=== PATIENT | female | born 1945 | race Caucasian/White ===

== ENCOUNTER 2024-09-02 11:23 | Emergency (ER) | payer MEDICARE, MEDICAID, SELFPAY ==
[2024-09-02 11:35] VITALS: BP 161/79; PULSE 77; RESP 19; TEMP 36.6; O2SAT 96; BMI 28.5
--- NOTE | 2024-09-02 11:47 | XR_ITS ---
Examination: CT abdomen and pelvis without contrast. Coronal 3-D reconstructions. Sagittal 2-D reconstructions. Date and time of exam:September 02, 2024 1207 hours INDICATIONS: Onset right lower abdominal pain today CTDI: vol (mGy): 8.13 DLP: (mGycm): 459 Technique: Axial images of the abdomen have been obtained, 3 mm slice thickness Intravenous contrast material has not been administered. Low dose protocols were performed. One or more of the following dose reduction techniques were used; automated exposure control, adjustment of the mA and/or KV according to patient size, use of iterative reconstruction technique. Findings: No focal liver or splenic lesion Absent gallbladder No pancreatic or adrenal mass No renal or ureteral calculi, no hydronephrosis Aorta normal size No pericecal inflammatory change No bowel obstruction Colonic diverticulosis Atrophic uterus Bladder intact Severe osteopenia with moderate disc narrowing L5-S1, moderate narrowing hip joints IMPRESSION: No renal or ureteral calculi, no hydronephrosis No CT findings of appendicitis bowel obstruction or diverticulitis
--- NOTE | 2024-09-02 11:47 | PD.EDRME ---
Rapid Medical Screening Exam [facility] Arrival date/time: 09/02/24 11:23 79-year-old female with no known medical history presents to the emergency room with a chief complaint of right lower quadrant abdominal pain and tenderness. Patient denies any vomiting any fevers any dysuria. I have greeted and performed a focused initial assessment of this patient. A comprehensive ED assessment and evaluation of the patient, analysis of all test results, and completion of the medical decision making process will be conducted by additional ED providers. Chief Complaint: Abdominal Pain Vital signs: Vital Signs Temperature 97.8 F 09/02/24 11:35 Pulse Rate 77 09/02/24 11:35 Respiratory Rate 19 09/02/24 11:35 Blood Pressure 161/79 H 09/02/24 11:35 Pulse Oximetry (%) 96 09/02/24 11:35 Oxygen Delivery Method Room Air 09/02/24 11:35 Vital signs reviewed by provider: Yes
[2024-09-02 12:23] LABS: Basophils # (Auto) 0.0 Thou/mm3 (0.0-0.2); Basophils % (Auto) 1 % (0-2.5); Eosinophils # (Auto) 0.2 Thou/mm3 (0.0-0.5); Eosinophils % (Auto) 3 % (0-10); Hematocrit 42.1 % (36.0-46.0); Hemoglobin 13.6 g/dL (12.0-16.0); Immature Granulocytes Auto 0.03 Thou/mm3 (0.00-0.00); Lymphocytes # (Auto) 1.7 Thou/mm3 (1.0-4.8); Lymphocytes % (Auto) 21 % (10-50); Mean Corpuscular HGB Conc 32.3 g/dl (31.0-37.0); Mean Corpuscular Hemoglobin 29.6 pg (25.0-35.0); Mean Corpuscular Volume 92 fL (80-100); Monocytes # (Auto) 0.7 Thou/mm3 (0.0-0.8); Monocytes % (Auto) 9 % (0-12); Neutrophils # (Auto) 5.3 Thou/mm3 (1.8-7.7); Neutrophils % (Auto) 66 % (37-80); Nucleated Red Blood Cell # 0.00 Thou/mm3 (0.00-0.00); Nucleated Red Blood Cell % 0 /100 WBC (0); Platelet Count 262 Thou/mm3 (140-440); RDW Standard Deviation 45.4 fL (36.4-46.3); Red Blood Count 4.59 Miln/mm3 (4.00-5.20); White Blood Count 8.0 Thou/mm3 (3.6-11.0)
[2024-09-02 12:31] LABS: Collection Type, Urine Clean Catch
[2024-09-02 12:35] LABS: Bilirubin,Urine Negative (Negative); Blood,Urine Negative (Negative); Clarity,Urine Clear (Clear/Hazy); Color,Urine Colorless (Lt Yel-Yel); Glucose, Urine Negative (Negative); Ketones,Urine Negative (Negative); Leukocyte Esterase,Urine Negative (Negative); Nitrite,Urine Negative (Negative); PH,Urine 7.5 (5.0-7.0); Protein,Urine Negative (Neg - Trace); RBC,Urine < 1 /hpf (0-3); Specific Gravity,Urine 1.009 (1.001-1.035); Squamous Epithelial Cell,Urine < 1 /hpf (0-5); Urobilinogen,Urine Negative mg/dL (0.0-1.0); WBC,Urine < 1 /hpf (0-5)
[2024-09-02 12:44] LABS: Alanine Aminotransferase 16 U/L (10-49); Albumin, Serum 4.1 gm/dL (3.4-4.8); Albumin/Globulin Ratio 1.5 (1.2-2.2); Alkaline Phosphatase 79 U/L (46-116); Anion Gap 11 (7-16); Aspartate Amino Transferase 18 U/L (0-34); BUN/Creatinine Ratio 13 Ratio (12-20); Bilirubin,Total 0.5 mg/dL (0.3-1.2); Blood Urea Nitrogen 12 mg/dL (9-23); Calcium 9.4 mg/dL (8.3-10.6); Calcium (Corrected) 9.4 mg/dL (8.5-10.1); Carbon Dioxide 27.3 mMol/L (20.0-31.0); Chloride 104 mMol/L (98-107); Creatinine (Component) 0.9 mg/dL (0.6-1.3); Estimated Creatinine Clearance 45.2 mL/min (>60); Globulin 2.7 gm/dL (2.3-3.5); Glucose 101 mg/dL (74-106); Lipase 34 U/L (12-53); Osmolality,Calculated 282 (275-295); Potassium 4.0 mMol/L (3.4-5.1); Sodium 142 mMol/L (136-145); Total Protein 6.8 gm/dL (5.7-8.2); eGFR > 60 See Note
--- NOTE | 2024-09-02 13:04 | PD.EDABDPN ---
ED Abdominal Pain RME/HPI General Chief Complaint: Abdominal Pain Stated complaint: Right lower abdomen pain, sent by clinic Arrival date/time: 09/02/24 11:23 Limitations: no limitations RME / HPI RME / HPI narrative: 09/02/24 11:23 79-year-old female with no known medical history presents to the emergency room with a chief complaint of right lower quadrant abdominal pain and tenderness. Patient denies any vomiting any fevers any dysuria. I have greeted and performed a focused initial assessment of this patient. A comprehensive ED assessment and evaluation of the patient, analysis of all test results, and completion of the medical decision making process will be conducted by additional ED providers. DR. FLANAGAN MAIN ED EVALUATION: 79 year old female presents to the Emergency Department via private vehicle with a chief complaint of right lower abdominal pain that has been worsening over the past 2 days. She denies fever, chills, weight loss, nausea, vomiting, diarrhea, constipation, dysuria, or urinary urgency/frequency. There is no chest pain, dyspnea, cough, or visual changes. She also denies back pain, joint pain, rashes, or neurological symptoms. No recent injury or trauma reported. She is not currently on any medications. Related Data Allergies Allergy/AdvReac Type Severity Reaction Status Date / Time codeine Allergy Verified 09/02/24 11:29 Review of Systems Review of Systems Systems Reviewed: All systems reviewed, normal except as documented Past Medical History Social History SMOKING STATUS: Never smoker ED Exam General Limitations: Present no limitations General appearance: Present alert and in no apparent distress Head Head exam: Present atraumatic, normocephalic and normal inspection Eye Eye exam: Present normal appearance, PERRL and EOMI ENT ENT exam: Present normal exam, normal oropharynx and mucous membranes moist Neck Neck exam: Present normal inspection, full ROM and trachea midline Chest Chest inspection: Present normal inspection and symmetric chest wall rise Respiratory Respiratory exam: Present normal lung sounds bilaterally Cardiovascular Cardiovascular exam: Present regular rate, normal rhythm and normal heart sounds Abdominal Exam Abdominal exam: Present soft and normal bowel sounds Extremities Exam Extremities exam: Present normal inspection and full ROM Back Exam Back exam: Present normal inspection and full ROM Neurological Exam Neurological exam: Present alert, oriented X3 and CN II-XII intact Psychiatric Psychiatric exam: Present normal affect and normal mood Skin Skin exam: Present warm, dry, intact and normal color Course Quality Measures none Orders Category Date Time Status Meter Engineer STAT Care 09/02/24 12:40 Active Continuous Pulse Oximetry STAT Care 09/02/24 12:40 Active Insert IV STAT Care 09/02/24 12:40 Active NPO STAT Care 09/02/24 12:[address] abdomen pelvis wo con Stat Exams 09/02/24 11:47 Completed CBC Stat Lab 09/02/24 11:55 Completed CMP [Comprehensive Metabolic Panel] Stat Lab 09/02/24 11:55 Completed Lipase Stat Lab 09/02/24 11:55 Completed Magnesium Stat Lab 09/02/24 12:40 Ordered Prothrombin Time with INR Stat Lab 09/02/24 12:40 Ordered UA [Urinalysis] Stat Lab 09/02/24 12:22 Completed Urine Culture Stat Lab 09/02/24 12:22 Received Morphine Inj Med 09/02/24 12:40 Discontinued 2 mg IVP X1 ONE Ondansetron Inj [Zofran Inj] Med 09/02/24 12:41 Discontinued 4 mg IVP X1 ONE Sodium Chloride 0.9% 1000 ml [Ns] 1,000 ml Med 09/02/24 12:40 Discontinued IV 999 mls/hr Vital Signs Vital signs: Vital Signs Temperature 97.8 F 09/02/24 11:35 Pulse Rate 77 09/02/24 11:35 Respiratory Rate 19 09/02/24 11:35 Blood Pressure 161/79 H 09/02/24 11:35 Pulse Oximetry (%) 96 09/02/24 11:35 Oxygen Delivery Method Room Air 09/02/24 11:35 Abdominal Pain MDM MDM Narrative MDM Narrative:: I, Senait Thompson, am scribing for and in the presence of Dr. Flanagan. CT negative, no appendicitis. Labs are unremarkable. Plan to discharge patient with resolved abdominal pain and musculoskeletal pain Patient data External records reviewed:: [facility] previous records Clinical information provided by:: patient and spouse Social determinants that could affect healthcare access:: none Patient has the following chronic illnesses:: Denies any PMHx, surgeries, or daily medications. How is presenting disease/condition affected by chronic disease/condition?: no chronic disease Evaluation data The following diagnostics were reviewed and interpreted by me:: lab results and radiology exam(s) Lab and/or radiology exams considered but not ordered:: none Interpretation Summary: Procedure(s): CT abdomen pelvis wo con Accession Number(s): [id number] cc: Fransisco Conklin; Froylan Krishna MD; NO PRIMARY/FAMILY,PHYSICIAN~ Examination: CT abdomen and pelvis without contrast. Coronal 3-D reconstructions. Sagittal 2-D reconstructions. Date and time of exam:September 02, 2024 1207 hours INDICATIONS: Onset right lower abdominal pain today CTDI: vol (mGy): 8.13 DLP: (mGycm): 459 Technique: Axial images of the abdomen have been obtained, 3 mm slice thickness Intravenous contrast material has not been administered. Low dose protocols were performed. One or more of the following dose reduction techniques were used; automated exposure control, adjustment of the mA and/or KV according to patient size, use of iterative reconstruction technique. Findings: No focal liver or splenic lesion Absent gallbladder No pancreatic or adrenal mass No renal or ureteral calculi, no hydronephrosis Aorta normal size No pericecal inflammatory change No bowel obstruction Colonic diverticulosis Atrophic uterus Bladder intact Severe osteopenia with moderate disc narrowing L5-S1, moderate narrowing hip joints IMPRESSION: No renal or ureteral calculi, no hydronephrosis No CT findings of appendicitis bowel obstruction or diverticulitis Dictated By: Froylan Krishna MD Medications / Prescriptions Medications or Prescriptions considered but not ordered:: none Medication administrations:: Medication Administration History Discontinued Medications Sodium Chloride (Ns) 1,000 mls @ 999 mls/hr IV .Q1H1M ONE Stop: 09/02/24 13:40 Last Admin: 09/02/24 14:19 Dose: Not Given Documented By: CG Non-Admin Reason: Cancelled by Provider Morphine Sulfate (Morphine Sulf Inj 10 Mg/Ml Vial) 2 mg IVP X1 ONE Stop: 09/02/24 14:40 Last Admin: 09/02/24 14:19 Dose: Not Given Documented By: CG Non-Admin Reason: Cancelled by Provider Ondansetron HCl (Ondansetron Inj 2 Mg/Ml Inj 2 Ml) 4 mg IVP X1 ONE Stop: 09/02/24 12:42 Last Admin: 09/02/24 14:19 Dose: Not Given Documented By: CG Non-Admin Reason: Cancelled by Provider see above Consultations Consultation(s) initiated? (list below): No Diagnosis Differential diagnosis abdominal pain: other (appendicitis, diverticulitis, and urinary tract infection (UTI)) Most likely diagnosis given after review of the tests above:: Resolved abdominal pain Musculoskeletal pain Admission Indicated Admission indicated?: not indicated Admission Request Was there a request for admission?: No Disposition Plan Disposition Plan: Discharge Discharge Attestation Discharge Attestation: The patient and all family members were given an opportunity to ask questions and understood the discharge instructions. Discharge instructions specifically effects, indications for sooner follow up or return to the emergency department, and the expected course of current diagnosis. Patient condition: Stable Discharge Plan Plan Patient Disposition: HOME (Self Care) Patient condition on transfer: Stable Prescriptions/Referrals Referrals: No Primary/Family,Physician [Primary Care Provider] - In 1 week Problem List Clinical Impression: Resolved abdominal pain, Musculoskeletal pain Patient/Caregiver Discharge Instructions Additional Instructions: Take Tylenol 500 mg 2 tabs every 6 hours PLUS Advil 200 mg gel 2 tablets as needed for pain. Please follow-up with your primary care physician within 2-3 days. Return to the Emergency Department as needed. Print Language: Belarusian Stand Alone Forms: Mendy Award Info., Patient Portal Info Letter
== END 2024-09-02 14:30 | disposition home or self-care (01) ==
PROVIDERS: Nurse Practitioner Family; Emergency Provider Family Medicine
DX: R10.31 Right lower quadrant pain (principal)
CPT/HCPCS: 36415; 74176; 80053; 81001; 83690; 83735; 85025; 85610; 87086; 99284

== ENCOUNTER 2024-09-03 10:37 | Emergency (ER) | payer MEDICARE, MEDICAID, SELFPAY ==
[2024-09-03 10:47] VITALS: BP 169/82; PULSE 85; RESP 19; TEMP 37.1; O2SAT 95; BMI 28.8
--- NOTE | 2024-09-03 11:50 | XR_ITS ---
Examination: Lumbar spine 3 views Technique one AP lateral coned lateral lower lumbar spine 3 views Indications: Lower back pain beginning 5 days ago. Date and time: September 03, 2024, 12:20 PM. Findings: Lumbar dextroscoliosis 12 degrees Prominent osteopenia Diffuse thhz-he-ytxaobjk lumbar degenerative disc disease, most prominent L4-L5, L5-S1. No spondylolisthesis Impression: Diffuse lqyf-tw-dltvgorq lumbar degenerative disc disease, most prominent L4-L5, L5-S1.
[2024-09-03] MEDS: ACETAMINOPHEN 325 MG TABLET 650 MG PO (12:08)
--- NOTE | 2024-09-03 12:13 | PD.EDABDPN ---
ED Abdominal Pain RME/HPI General Chief Complaint: Abdominal Pain Stated complaint: lumbar back pain Time seen by provider: 09/03/24 11:05 Arrival date/time: 09/03/24 10:37 This is a 79-year-old female was brought in by for complaints of lower back pain. Patient reports she was evaluated in the emergency department yesterday however continues to have mild lower back pain. Upon arrival patient states her pain has diminished. No reports of fever rigors chills dysuria. Source: patient Mode of arrival: ambulatory Related Data Previous Rx's ?Medication ?Instructions ?Recorded naproxen 500 mg tablet (Naprosyn) 500 mg PO BID PRN pain #20 tabs 09/03/24 Allergies Allergy/AdvReac Type Severity Reaction Status Date / Time codeine Allergy Verified 09/03/24 10:43 Review of Systems Review of Systems Systems Reviewed: All systems reviewed, normal except as documented Narrative Review of Systems: Gen: No fever, no chills, no weight loss EYES: No discharge, no visual changes, no pain HEENT: No ear pain, no congestion, no sore throat PULM: No shortness of breath, no cough, no congestion CV: No chest pain, no dyspnea on exertion, no palpitations GI: No nausea, no vomiting, no diarrhea, no pain, no constipation : No frequency, no urgency,? no dysuria Musc/skel: No joint pain, no back pain Skin: No rash? Psyc: No hallucinations, no depression Heme/Lymph: No easy bleeding or bruising tendencies Neuro: No weakness, no headache ED Exam Narrative Physical exam: General: Sittiing in Exam table in no acute distress, answering questions appropriately HENT: normocephalic, atraumatic, EOMI, PERRLA, moist mucous membranes Chest: chest wall is nontender Cardiac: regular rate and rhythm, normal S1 and S2, no murmurs, rubs, or gallops, capillary refill ?2 seconds Pulmonary: clear to auscultation bilaterally, no wheezing, crackles, or rhonchi Abdominal: active bowel sounds, soft, nontender, nondistended Neuro: A&OX3, CN II-XII intact, sensation grossly intact bilaterally in UE and LE. Skin: no rashes, no ecchymosis Ext: no lower extremity edema Course Quality Measures none Orders Category Date Time Status XR lumbar spine 2-3V Stat Exams 09/03/24 11:50 Completed Acetaminophen Tab [Tylenol Tab] Med 09/03/24 11:50 Discontinued 650 mg PO X1 ONE Vital Signs Vital signs: Vital Signs Temperature 98.7 F 09/03/24 10:47 Pulse Rate 85 09/03/24 10:47 Respiratory Rate 19 09/03/24 10:47 Blood Pressure 169/82 H 09/03/24 10:47 Pulse Oximetry (%) 95 09/03/24 10:47 Oxygen Delivery Method Room Air 09/03/24 10:47 Abdominal Pain MDM MDM Narrative MDM Narrative:: The patient's acute case reviewed from yesterday's ER visit. CT labs and imaging reassuring. I did go ahead and order a lumbar x-ray because the patient states she has intermittent lower back pain I did reveal diffuse degenerative disc disease L5-S1. Advised will discharge home with close follow-up with PCP return to the emergency department if any changes. Patient data External records reviewed:: [facility] previous records Clinical information provided by:: patient Social determinants that could affect healthcare access:: none Patient has the following chronic illnesses:: no How is presenting disease/condition affected by chronic disease/condition?: no chronic disease Evaluation data The following diagnostics were reviewed and interpreted by me:: radiology exam(s) Lab and/or radiology exams considered but not ordered:: no Interpretation Summary: Examination: Lumbar spine 3 views Technique one AP lateral coned lateral lower lumbar spine 3 views Indications: Lower back pain beginning 5 days ago. Date and time: September 03, 2024, 12:20 PM. Findings: Lumbar dextroscoliosis 12 degrees Prominent osteopenia Diffuse bwcl-bj-iqyrcmar lumbar degenerative disc disease, most prominent L4-L5, L5-S1. No spondylolisthesis Impression: Diffuse gexo-bs-orkmefcz lumbar degenerative disc disease, most prominent L4-L5, L5-S1. Medications / Prescriptions Medications or Prescriptions considered but not ordered:: no Medication administrations:: Medication Administration History Discontinued Medications Acetaminophen (Acetaminophen 325 Mg Tablet) 650 mg PO X1 ONE Stop: 09/03/24 11:51 Last Admin: 09/03/24 12:08 Dose: 650 mg Documented By: CELESTE meds given Consultations Consultation(s) initiated? (list below): No Diagnosis Differential diagnosis abdominal pain: constipation and other (Degenerative disc disease, lumbar strain, sciatica,) Most likely diagnosis given after review of the tests above:: Degenerative disc Admission Indicated Admission indicated?: not indicated Admission Request Was there a request for admission?: No Disposition Plan Disposition Plan: Discharge Discharge Attestation Discharge Attestation: The patient and all family members were given an opportunity to ask questions and understood the discharge instructions. Discharge instructions specifically effects, indications for sooner follow up or return to the emergency department, and the expected course of current diagnosis. Patient condition: Stable Discharge Plan Plan Patient Disposition: HOME (Self Care) Patient condition on transfer: Stable Prescriptions/Referrals Prescriptions/Med Rec: New naproxen [Naprosyn] 500 mg tablet 500 mg PO BID PRN (Reason: pain) Qty: 20 0RF Referrals: Serge Villavicencio MD [Primary Care Provider] - In 1 week Problem List Clinical Impression: Degenerative disc disease Patient/Caregiver Discharge Instructions Discharge Activity: activity as tolerated Education Materials: ED Back Care Tips Additional Instructions: Your x-ray demonstrates degenerative disc disease. Please follow-up with your primary doctor clinic as directed. Can take dhrk-xjy-zpbbrzm Tylenol or ibuprofen for pain. Return to the emergency department if any worsening situation in condition. Print Language: Bhutanese Stand Alone Forms: Mendy Award Info., Patient Portal Info Letter JASMIN/PRO Supervising Physician JASMIN/PRO Supervising Physician: jayesh
--- NOTE | 2024-09-03 14:40 | PC.NURSE ---
PT CALLED IN LOBBY; NO RESPONSE AT THIS TIME.
--- NOTE | 2024-09-03 15:05 | PC.NURSE ---
PT CALLED INSIDE LOBBY AND OUTSIDE; NO RESPONSE AT THIS TIME
--- NOTE | 2024-09-03 15:47 | PC.NURSE ---
PT CALLED IN LOBBY AND OUTSIDE; NO RESPONSE AT THIS TIME.
== END 2024-09-03 15:47 | disposition home or self-care (01) ==
PROVIDERS: Emergency Provider Family Medicine; PCP Family Medicine
DX: M51.360 Other intervertebral disc degeneration, lumbar region with discogenic back pain only (principal); M51.370 Other intervertebral disc degeneration, lumbosacral region with discogenic back pain only
CPT/HCPCS: 72100; 99283; A9270

== ENCOUNTER 2024-09-16 08:48 | Emergency (ER) | payer MEDICARE, MEDICAID, SELFPAY ==
[2024-09-16 08:50] VITALS: BMI 27.4
[2024-09-16 09:03] VITALS: BP 166/81; PULSE 91; RESP 20; TEMP 37.3; O2SAT 98; BMI 28.5
--- NOTE | 2024-09-16 09:13 | EDNOTE_ITS ---
ED General RME/HPI General Chief complaint: Skin/Abscess/Foreign Body Stated complaint: SPIDER BITE TO NOSE 2-3 DAYS AGO Time Seen by Provider: 09/16/24 09:09 Arrival date/time: 09/16/24 08:48 CC: Red swollen painful nose HPI onset 3 to 4 days ago with progressive increase in severity denies cough fever chills shortness of breath difficulty breathing. If not sure if stung by an insect or has been had her finger in her nose. Patient denies any bleeding or discharge from the nose she denies any difficulty breathing. Minimal relief with ibuprofen. Currently pain is 8 on a 10 scale nonradiating. Patient is awake alert oriented in mild discomfort but not in any acute distress. Related Data Previous Rx's ?Medication ?Instructions ?Recorded naproxen 500 mg tablet (Naprosyn) 500 mg PO BID PRN pa in #20 tabs 09/03/24 amoxicillin 875 mg-potassium 1 tab PO BID #14 tabs 03/12 clavulanate 125 mg tablet meloxicam 7.5 mg tablet 7.5 mg PO .Twice daily #10 t abs 09/16/24 Allergies Allergy/AdvReac Type Severity Reaction Status Date / Time codeine Allergy Verified 09/03/24 10:43 Review of Systems Review of Systems Narrative Review of Systems: GEN: No fever, no chills, no weight loss EYES: No discharge, no visual changes, no pain HEENT: No ear pain, no congestion, no sore throat, +nose pain PULM: No shortness of breath, no cough, no congestion CV: No chest pain, no dyspnea on exertion, no palpitations GI: No nausea, no vomiting, no diarrhea, no pain, no constipation : No frequency, no urgency, no dysuria MUSC/SKEL: No joint pain, no back pain SKIN: No rash PSYCH: No hallucinations, no depression HEME/LYMPH: No easy bleeding or bruising tendencies NEURO: No weakness, no headache Past Medical History Social History SMOKING STATUS: Never smoker ED Exam Narrative Physical exam: [General: In mild discomfort but not in any acute distress Head normocephalic HEENT: Nose, enlarged tender erythematous no open lesions, induration or ulcerations appreciated in the septum, or the visible nares, external nose erythematous and edematous no open lesions. All of the substance of HEENT are within acceptable limits Neck is supple nontender Chest equal chest rise nontender to palpation Respiratory: Clear to auscultation no wheezes crackles or rubs CV: Rate rhythm is regular no murmurs rubs or clicks Abdomen is distended secondary to body habitus soft nontender no masses positive bowel sounds all 4 quadrants Back: No CVA tenderness no spinous process tenderness from cervical spine thoracic and lumbar spine Skin: Intact no petechiae rash induration ulceration or crepitus Extremities: Moving all extremity against resistance cap refill less than 2 seconds neurosensory intact Neuro: Awake alert oriented x3 Glascow coma 15 no focal deficits] Course Quality Measures none Orders Category Date Time Status 1,000 mg IM w/Lido* 1% Med 09/16/24 09:12 Ordered cefTRIAXone [Rocephin] 1,000 mg Lidocaine 1% 20 ml [Xylocaine 1% 20 ML] 2.1 ml IM X1 oxyCODONE/APAP 5/325 [Percocet 5/325] Med 09/16/24 09:11 Once 1 tab PO X1 ONE Vital Signs Vital signs: Vital Signs Temperature 99.2 F 09/16/24 09:03 Pulse Rate 91 09/16/24 09:03 Respiratory Rate 20 09/16/24 09:03 Blood Pressure 166/81 H 09/16/24 09:03 Pulse Oximetry (%) 98 09/16/24 09:03 Oxygen Delivery Method Room Air 09/16/24 09:03 Discharge Plan Plan Patient Disposition: HOME (Self Care) Patient condition on transfer: Stable Prescriptions/Referrals Prescriptions/Med Rec: New amoxicillin-pot clavulanate 875-125 mg tablet 1 tab PO BID Qty: 14 0RF meloxicam 7.5 mg tablet 7.5 mg PO .Twice daily Qty: 10 0RF No Action naproxen [Naprosyn] 500 mg tablet 500 mg PO BID PRN (Reason: pain) Qty: 20 0RF Problem List Clinical Impression: Cellulitis Patient/Caregiver Discharge Instructions Other Activity Instructions:: Take the medications as prescribed, return in 3 days for recheck if there is a worsening of symptoms in spite of the medications do not wait the 3 days return sooner. Education Materials: ED Cellulitis Print Language: Croatian Stand Alone Forms: Mendy Award Info., Patient Portal Info Letter, Work/School Release PA/MANAGER URGENT CARE Supervising Physician PA/MANAGER URGENT CARE Supervising Physician: Sae Navarrete ENP MDM Clinical Information Provided by other: I suspect this is a nose cellulitis I do not find an indurated center such as an abscess, will load the patient with Rocephin and start her on antibiotics and discharged home for follow-up in 3 days.
[2024-09-16] MEDS: cefTRIAXone 1,000 MG, LIDOCAINE 1% 20 ML 2.1 ML IM (09:31)
== END 2024-09-16 09:54 | disposition home or self-care (01) ==
LOC: SERX 09:53
PROVIDERS: Emergency Provider Family Medicine; PCP Physician Assistant Medical
DX: J34.0 Abscess, furuncle and carbuncle of nose (principal)
CPT/HCPCS: 96372; 99283; J0696; J3490; A9270